=== PATIENT | male | born 1980 | race African-American/Black ===

== ENCOUNTER 2016-08-06 20:58 | Emergency (ER) | payer OTHER ==
[~2016-08-06] VITALS: Ht 175.3 cm; Wt 101.0 kg
[2016-08-06 21:30] VITALS: BP 155/112
[2016-08-06 21:39] LABS: CREATININE 1.2 mg/dL (0.6-1.3)
[2016-08-06 21:40] LABS: POINT-OF-CARE METER ID UU13113702; POINT-OF-CARE USER ID PUTMLD10
[2016-08-06 21:48] LABS: BASE EXCESS -5.5 mEq/L (-3 to +3); CARBOXY HGB 1.7 % (0-5); COMMENTS - BLOOD GASES C+; DEVICE VENT; FI02 100 %; MECHANICAL RATE 22 resp/min; MODE AC; PCO2 38 mm Hg (35-45); PEEP 10 CM/H20; PO2 64 mm Hg (80-100); SITE A-LINE; TOTAL RESP RATE 30 resp/min; pH 7.33 (7.35-7.45)
[2016-08-06 22:26] LABS: ADD MIUA? YES; BILIRUBIN NEGATIVE; BLOOD SMALL; COLOR YELLOW ((YELLOW)); GLUCOSE (STRIP) NEGATIVE; KETONES NEGATIVE; LEUKOCYTES NEGATIVE; NITRITE NEGATIVE; PH, URINE 5.5 (5-8); PROTEIN (STRIP) >=300; SPECIFIC GRAVITY 1.025 (1.000-1.030)
[2016-08-06 22:36] LABS: TIDAL VOLUME 500 ML
[2016-08-06 22:37] LABS: BASE EXCESS -2.7 mEq/L (-3 to +3); BICARBONATE 21.8 mEq/L (22-26); CARBOXY HGB 2.1 % (0-5); COMMENTS - BLOOD GASES C+; DEVICE VENT; FI02 100 %; MECHANICAL RATE 22 resp/min; METHEMOGLOBIN 0.8 % (0-1.5); MODE AC; PCO2 36 mm Hg (35-45); PEEP 10 CM/H20; PO2 80 mm Hg (80-100); SITE A-LINE; TIDAL VOLUME 500 ML; TOTAL RESP RATE 22 resp/min; pH 7.39 (7.35-7.45)
[2016-08-06 22:48] LABS: MEAN PLAT.VOLUME 10.2 uM^3 (9.0-12.4)
[2016-08-06 22:50] LABS: HEMATOCRIT 28.5 % (38.0-50.0); MCH 30.4 PG (29.0-34.0); MCHC 33.3 G/DL (30.0-36.0); MCV 91.3 FL (86-99); RBC DIS.WIDTH-SD 44.6 % (39-53); RED BLOOD COUNT 3.12 M/uL (4.00-5.50)
[2016-08-06 22:51] LABS: WHITE BLOOD COUNT 40.6 K/uL (4.1-10.2)
[2016-08-06 22:55] LABS: EPITHELIAL CELLS 1+ /HPF
[2016-08-06 22:56] LABS: BACTERIA 2+ /HPF; CASTS NONE SEEN /LPF; CRYSTALS NONE SEEN; MUCUS 2+ /LPF; OTHER SPERM CELLS; UCUL ADDED? YES
[2016-08-06 22:58] LABS: CHLORIDE 102 mEq/L (99-109); POTASSIUM 4.5 mEq/L (3.7-5.4); SODIUM 134 mEq/L (136-147)
[2016-08-06 23:01] LABS: GLUCOSE 180 mg/dL (70-99); INTER. NORMALIZED RATIO 1.3; PROTHROMBIN TIME 13.3 (9.2-11.2); PTT 28.2 (25-32)
[2016-08-06 23:02] LABS: ANION GAP 10 MEQ/L (2-14)
[2016-08-06 23:03] LABS: TOTAL BILIRUBIN 0.8 mg/dL (0.0-1.0)
[2016-08-06 23:04] LABS: ALKALINE PHOSPHATASE 118 IU/L (3-129); GFR ESTIMATE (CALCULATED) > 59 mL/min/
[2016-08-06 23:05] LABS: UREA NITROGEN (BUN) 17 mg/dL (9-23)
[2016-08-06 23:08] LABS: LIPASE 136 U/L (1.0-51.0); TROP-I INTERPRETATION POSITIVE
[2016-08-06 23:09] LABS: TROPONIN-I 0.81 ng/mL (0.0-0.30)
[2016-08-06 23:13] LABS: NRBC (%) 0.5 /100 WBC (0-0)
[2016-08-06 23:54] LABS: BASOPHIL COUNT 0.1 K/uL (0-0.1); EOSINOPHIL (%) 0.6 % (0-5); EOSINOPHIL COUNT 0.2 K/uL (0-0.3); HEMATOLOGY COMMENT 1 REV; IMMATURE GRANULOCYTE (%) 1.7 % (0.0-0.7); LYMPHOCYTE COUNT 2.6 K/uL (1.0-2.8); MONOCYTE COUNT 0.8 K/uL (0-0.8); NEUTROPHIL (%) 89.2 % (45-76); NEUTROPHIL COUNT 36.2 K/uL (1.8-6.4); PLAT.SUFFICIENCY INCREASED
== END 2016-08-06 23:28 | disposition short-term general hospital (02) ==
LOC: EDBD 20:58 → EME 20:58
PROVIDERS: Emergency Medicine
PROC: 05HM33Z Insertion of Infusion Device into Right Internal Jugular Vein, Percutaneous Approach (ICD-10-PCS; principal; 2016-08-06)
PROC: B543ZZA Ultrasonography of Right Jugular Veins, Guidance (ICD-10-PCS; 2016-08-06)
PROC: 03HC33Z Insertion of Infusion Device into Left Radial Artery, Percutaneous Approach (ICD-10-PCS; 2016-08-06)
PROC: 0XH933Z Insertion of Infusion Device into Left Upper Arm, Percutaneous Approach (ICD-10-PCS; 2016-08-06)
PROC: 5A2204Z Restoration of Cardiac Rhythm, Single (ICD-10-PCS; 2016-08-06)
PROC: 0T9B70Z Drainage of Bladder with Drainage Device, Via Natural or Artificial Opening (ICD-10-PCS; 2016-08-06)
PROC: 5A1935Z Respiratory Ventilation, Less than 24 Consecutive Hours (ICD-10-PCS; 2016-08-06)
DX: I97.120 Postprocedural cardiac arrest following cardiac surgery (principal); I47.1 Supraventricular tachycardia; J90 Pleural effusion, not elsewhere classified
CPT/HCPCS: 36600; 36620; 71010; 80047; 80053; 81003; 82803; 82948; 83605; 83690; 84484; 85025; 85610; 85730; 87040; 87086; 93005; 94002; 99281; 99285; J0282; J1940; J2250; J2543; J2704

== ENCOUNTER 2018-01-06 15:28 | Emergency (ER) | payer OTHER ==
[~2018-01-06] VITALS: Ht 182.9 cm; Wt 99.7 kg
[2018-01-06 15:56] LABS: HEMATOCRIT 41.7 % (38.0-50.0); HEMOGLOBIN 14.8 G/DL (12.5-16.6); MCH 31.9 PG (29.0-34.0); MCHC 35.5 G/DL (30.0-36.0); MCV 89.9 FL (86-99); PLATELET COUNT 170 K/uL (156-360); RBC DIS.WIDTH-CV 13.2 % (11.8-14.6); RBC DIS.WIDTH-SD 43.6 % (39-53); RED BLOOD COUNT 4.64 M/uL (4.00-5.50); WHITE BLOOD COUNT 13.3 K/uL (4.1-10.2)
[2018-01-06 16:07] LABS: CHLORIDE 103 mEq/L (99-109); POTASSIUM 3.5 mEq/L (3.7-5.4); SODIUM 136 mEq/L (136-147)
[2018-01-06 16:08] LABS: GLUCOSE 87 mg/dL (70-99)
[2018-01-06 16:12] LABS: CREATININE 1.3 mg/dL (0.6-1.3); GFR ESTIMATE (CALCULATED) > 59 mL/min/ (58.99-99999)
[2018-01-06 16:13] LABS: UREA NITROGEN (BUN) 12 mg/dL (9-23)
[2018-01-06 16:17] LABS: TROP-I INTERPRETATION NEGATIVE; TROPONIN-I 0.02 ng/mL (0.0-0.30)
[2018-01-06] MEDS ORDERED: METOPROLOL SUC100 MG PO (16:36)
[2018-01-06 17:00] VITALS: BP 121/71
== END 2018-01-06 17:10 | disposition home or self-care (01) ==
LOC: EME 15:28
PROVIDERS: Emergency Medicine
DX: I47.2 Ventricular tachycardia (principal); Z95.810 Presence of automatic (implantable) cardiac defibrillator; Z95.2 Presence of prosthetic heart valve; I10 Essential (primary) hypertension; F17.200 Nicotine dependence, unspecified, uncomplicated
CPT/HCPCS: 71045; 80048; 84484; 85027; 93005; 99281; 99284